=== PATIENT | female | born 1955 | race Caucasian/White ===

== ENCOUNTER 2024-02-24 07:00 | Inpatient (IN) | payer MEDICARE, BC ==
[2024-02-16 15:11] LABS: BILIRUBIN,URINE NEGATIVE (Neg); CLARITY,URINE CLEAR (Clear); COLOR,URINE YELLOW (Yellow); GLUCOSE, URINE NEGATIVE (Neg); KETONES,URINE NEGATIVE (Neg); LEUKOCYTE ESTERASE ,URINE NEGATIVE (Neg); NITRITES, URINE NEGATIVE (Neg); OCCULT BLOOD,URINE NEGATIVE (Neg); PROTEIN,URINE NEGATIVE (Neg); UROBILINOGEN,URINE 0.2 E.U/dL (0.2-1.0)
[2024-02-16 15:19] LABS: UA COLLECTION TYPE CLN CATCH MIDSTREAM
[2024-02-16 15:21] LABS: EOSINOPHILS # (AUTO) 0.1 X10'3 (0-0.9); EOSINOPHILS % (AUTO) 2.4 % (0-6); LYMPHOCYTES # (AUTO) 0.8 X10'3 (1.1-4.8); LYMPHOCYTES % (AUTO) 19.3 % (21-51); MEAN CORPUSCULAR HEMOGLOBIN 34.1 PG (27.0-31.0); MEAN CORPUSCULAR HGB CONC 33.7 g/dL (33.0-36.5); MEAN CORPUSCULAR VOLUME 101.2 FL (78-98); MEAN PLATELET VOLUME 7.1 FL (7.4-10.4); MONOCYTES # (AUTO) 0.3 X10'3 (0-0.9); MONOCYTES % (AUTO) 8.1 % (2-12); NEUTROPHILS # (AUTO) 2.8 X10'3 (1.8-7.7); NEUTROPHILS % (AUTO) 69.2 % (42-75); PRE OP HEMOGLOBIN 11.4 g/dL (12.0-16.0); PRE OP PLATELET COUNT 175 X10'3 (140-440); PRE OP WHITE BLOOD COUNT 4.1 10'3 (4.8-10.8); RED BLOOD COUNT 3.36 X10'6 (4.20-5.60); RED CELL DISTRIBUTION WIDTH 13.6 % (11.5-14.5)
[2024-02-16 15:28] LABS: PRE OP INR 1.1 INR; PRE OP PROTIME 11.2 SECONDS (9.0-12.0)
[2024-02-16 15:39] LABS: ALBUMIN 3.9 G/DL (3.4-5.0); ALBUMIN/GLOBULIN RATIO 1.1 (1.1-1.5); ALKALINE PHOSPHATASE 111 IU/L (46-116); BLOOD UREA NITROGEN 7 MG/DL (7-18); BUN/CREATININE RATIO 11.3 (10.0-20.0); CHLORIDE 95 MMOL/L (99-107); CREATININE 0.62 MG/DL (0.40-0.90); PRE OP ALT 45 U/L (30-65); PRE OP ANION GAP 9 (8-16); PRE OP AST 51 U/L (10-37); PRE OP BILIRUB, TOTAL 0.8 MG/DL (0.0-1.0); PRE OP GLUCOSE 87 MG/DL (70-104); TOTAL CARBON DIOXIDE 23.9 MMOL/L (24-32); TOTAL PROTEIN 7.4 G/DL (6.4-8.2); eGFR > 90 ML/MIN
[2024-02-16 15:54] LABS: PRE OP SODIUM 128 MMOL/L (135-145)
[2024-02-24] VITALS (33 sets, daily range): BP systolic 122–194; BP diastolic 67–87; PULSE 74–90; RESP 7–20; TEMP 97–97.4; O2SAT 96–100
[~2024-02-24] VITALS: Ht 167.6 cm; Wt 70.0 kg
[2024-02-24] MEDS: DOCUMENT DATE & TIME OF BETA-BLOCKER PO ONE (05:30)
[~2024-02-24 07:00] MED LIST: APIX5TAB3 PO; ATOR-2 PO; CALC-159 PO; CYAN100097 PO; LISI20TA28 PO; METO-395 PO; ondansetron/PF 4mg/2ml inj IV PRN
[2024-02-24] MEDS: cefazolin 2gm/D5W 100mL 100 ML IV ONE (07:30)
[2024-02-24] MEDS: famotidine 20mg tablet PO ONE (07:34)
[2024-02-24] MEDS: vancomycin/NS 1 GM in NS 250 ML IV ONE (07:35)
[2024-02-24] MEDS: ringers solution, lacted 1,000 ML IV SCH ×2 (07:35→08:20)
[2024-02-24] MEDS: aprepitant 40mg capsule PO ONE (07:36)
[2024-02-24] MEDS ORDERED: LIDOcaine 1% (10mg/ml) 2ml vial ONE (08:09)
[2024-02-24] MEDS ORDERED: iohexol 350 MG/ML 50ML vial IV ONE (08:17)
[2024-02-24] MEDS ORDERED: morphine 4 MG/ML inj SYRINge IV PRN ×2 (08:20)
[2024-02-24] MEDS: acetaminophen 1,000mg/100ml IV 100 ML IV ONE (08:20)
[2024-02-24] MEDS ORDERED: proCHLORperazine 10 MG/2 ml inj IV PRN ×2 (08:20→09:45)
[2024-02-24] MEDS ORDERED: ondansetron/PF 4mg/2ml inj IV PRN ×2 (08:20→09:45)
[2024-02-24] MEDS ORDERED: morphine 2 MG/ML inj. syringe IV PRN ×2 (08:20)
[2024-02-24] MEDS ORDERED: sevoflurane 250ml liquid IH ONE (08:46)
[2024-02-24] MEDS ORDERED: fentaNYL/PF 50MCG/1 ML 2ML syringe ONE (08:57)
[2024-02-24] MEDS ORDERED: ondansetron/PF 4mg/2ml inj ONE (09:10)
[2024-02-24] MEDS ORDERED: midazolam 1 mg/ML 2ml injection ONE (09:10)
[2024-02-24] MEDS ORDERED: propofol inj 20 ML IV ONE (09:11)
[2024-02-24] MEDS ORDERED: dexamethasone sod phosphate 4mg/ml inj. ONE (09:11)
[2024-02-24] MEDS ORDERED: heparin 1,000unit/ml 10ml vial 10 ML ONE (09:11)
[2024-02-24] MEDS ORDERED: LIDOcaine 1%/PF 5ML 10 MG/ML VIAL ONE (09:11)
[2024-02-24] MEDS ORDERED: magnesium sulf-water 2g/50mL 50 ML IV PRN (09:45)
[2024-02-24] MEDS ORDERED: potassium Cl 20 mEq SR tablet PO PRN (09:45)
[2024-02-24] MEDS ORDERED: HYDROcodone/acetaminophen 5mg/325mg tablet PO PRN (09:45)
[2024-02-24] MEDS ORDERED: labetalol 20mg/4ml (5mg/ml) syringe IV PRN (09:45)
[2024-02-24] MEDS ORDERED: potassium Cl 40MEQ/270ML bag 250 ML IV PRN (09:45)
[2024-02-24] MEDS ORDERED: diphenhydrAMINE 25mg capsule PO PRN (09:45)
[2024-02-24] MEDS ORDERED: potassium Cl 20mEq/100mL bag 100 ML IV PRN (09:45)
[2024-02-24] MEDS ORDERED: potassium CL 10mEq/100ml bag 100 ML IV PRN (09:45)
[2024-02-24] MEDS ORDERED: hydrALAZINE 20mg/ml inj. IV PRN (09:45)
[2024-02-24] MEDS ORDERED: ALPRAZolam 0.25mg tablet PO PRN (09:45)
[2024-02-24] MEDS ORDERED: magnesium sulf-water 4G/100mL 100 ML IV PRN (09:45)
[2024-02-24] MEDS ORDERED: potassium Cl 40MEQ/1/2NS 520ml 520 ML IV PRN (09:45)
[2024-02-24] MEDS: labetalol 20mg/4ml (5mg/ml) syringe IV PRN (09:55)
[2024-02-24] MEDS: hydrALAZINE 20mg/ml inj. IV PRN (10:57)
[2024-02-24] MEDS: normal saline 1000ml 1,000 ML IV SCH (11:41)
[2024-02-24] MEDS: lisinopril 20mg tablet PO SCH (12:11)
[2024-02-24] MEDS: HALLS - SOOTHE MENTHOL 1.8 MG cough drop LOZENGE MM PRN (13:16)
[2024-02-24] MEDS: acetaminophen 325mg tablet PO PRN (13:55)
[2024-02-24] MEDS: ceFAZolin 1GM/D5W- ADD-VANTAGE 50 ML IV SCH (15:36)
[2024-02-24] MEDS: sod chloride 0.9% 10ml flush syringe IV SCH (15:39)
[2024-02-24] MEDS: apixaban 5mg tablet PO SCH (19:51)
[2024-02-24] MEDS: vancomycin/NS 1 GM ADD-VANTAGE 250 ML IV SCH (19:54)
[2024-02-24] MEDS: VITAMIN D3 PO SCH (20:00)
[2024-02-24] MEDS: CALCIUM CARBONATE PO SCH (20:00)
[2024-02-25 02:00] VITALS: BP 138/58; PULSE 86; RESP 20; TEMP 97.4; O2SAT 97
[2024-02-25 06:00] VITALS: BP 159/82; PULSE 95; RESP 18; TEMP 97.6; O2SAT 98
[2024-02-25 07:08] LABS: BASOPHILS % (AUTO) 0.2 % (0-1); EOSINOPHILS % (AUTO) 0 % (0-6); HEMATOCRIT 34.8 % (35.0-45.0); HEMOGLOBIN 11.6 g/dl (12.0-16.0); LYMPHOCYTES # (AUTO) 0.4 X10'3 (1.1-4.8); LYMPHOCYTES % (AUTO) 3.5 % (21-51); MEAN CORPUSCULAR HEMOGLOBIN 34.8 PG (27.0-31.0); MEAN CORPUSCULAR HGB CONC 33.2 g/dL (33.0-36.5); MEAN CORPUSCULAR VOLUME 104.6 FL (78-98); MEAN PLATELET VOLUME 7.6 FL (7.4-10.4); MONOCYTES # (AUTO) 0.3 X10'3 (0-0.9); MONOCYTES % (AUTO) 3.2 % (2-12); NEUTROPHILS # (AUTO) 10.2 X10'3 (1.8-7.7); NEUTROPHILS % (AUTO) 93.1 % (42-75); PLATELET COUNT 199 X10'3 (140-440); RED BLOOD COUNT 3.33 X10'6 (4.20-5.60); RED CELL DISTRIBUTION WIDTH 13.6 % (11.5-14.5)
[2024-02-25 07:21] LABS: PROTHROMBIN TIME 10.9 SECONDS (9.0-12.0)
[2024-02-25 07:39] LABS: ALANINE AMINOTRANSFERASE 24 U/L (12-78); ALBUMIN 3.7 G/DL (3.4-5.0); ALKALINE PHOSPHATASE 84 IU/L (46-116); ANION GAP 14 (8-16); ASPARTATE AMINO TRANSFERASE 20 U/L (10-37); BILIRUBIN,TOTAL 0.8 MG/DL (0.1-1.0); BLOOD UREA NITROGEN 11 MG/DL (7-18); BUN/CREATININE RATIO 10.4 (10.0-20.0); CHLORIDE 99 MMOL/L (99-107); CREATININE 1.06 MG/DL (0.40-0.90); GLUCOSE 156 MG/DL (70-104); MAGNESIUM 1.7 MG/DL (1.5-2.4); PRO BRAIN NATRIURETIC PEPTIDE 876 PG/ML (0-125); SODIUM 133 MMOL/L (135-145); TOTAL CARBON DIOXIDE 19.6 MMOL/L (24-32); TOTAL PROTEIN 7.4 G/DL (6.4-8.2); eCRCL 48 ML/MIN; eGFR 52 ML/MIN
[2024-02-25] MEDS: cyanocobalamin 500mcg tablet PO SCH (08:00)
[2024-02-25] MEDS: pantoprazole 40mg Tablet.DR PO PRN (08:11)
[2024-02-25] MEDS: docusate sod 100mg capsule PO PRN (08:11)
[2024-02-25] MEDS: atorvastatin 20mg tablet PO SCH (08:13)
[2024-02-25] MEDS: metoprolol succinate 25mg (24-HOUR) SR. Tablet PO SCH (08:13)
[2024-02-25 08:55] VITALS: RESP 18; O2SAT 98
[2024-02-25 09:32] VITALS: BP 159/82; PULSE 95; RESP 18; TEMP 97.6; O2SAT 98
[2024-02-25 11:00] VITALS: BP 132/69; PULSE 83; RESP 13; TEMP 97.8; O2SAT 99
== END 2024-02-25 14:22 | disposition home or self-care (01) | DRG 274 ==
LOC: PAS IN 07:00 → EDSTATUS 08:30 → PCU 3S 13:31
PROVIDERS: ADMIT Student in an Organized Health Care Education/Training Program; ATTEND Student in an Organized Health Care Education/Training Program
PROC: 03HY32Z Insertion of Monitoring Device into Upper Artery, Percutaneous Approach (ICD-10-PCS; 2024-02-24)
PROC: B24BZZ4 Ultrasonography of Heart with Aorta, Transesophageal (ICD-10-PCS; 2024-02-24)
PROC: 02L73DK Occlusion of Left Atrial Appendage with Intraluminal Device, Percutaneous Approach (ICD-10-PCS; principal; 2024-02-24 08:46)
DX: I48.0 Paroxysmal atrial fibrillation (principal); E78.5 Hyperlipidemia, unspecified; I10 Essential (primary) hypertension; Z86.73 Personal history of transient ischemic attack (TIA), and cerebral infarction without residual deficits; Z79.01 Long term (current) use of anticoagulants; Z88.8 Allergy status to other drugs, medicaments and biological substances
CPT/HCPCS: 33340; 36415; 71045; 71046; 76937; 80053; 81003; 82948; 83735; 83880; 84295; 85025; 85347; 85610; 85730; 86885; 86900; 86901; 86920; 87081; 93005; 93308; 93312; 93325; A4618; A6258; A6449; C1889; C1893; C1894; G0378; J0360; J0690; J1100; J1644; J2250; J2405; J2704; J3010; J3370; J3490; J7030; J7040; J7120; J8501; Q9967

== ENCOUNTER 2024-04-18 12:19 | Day surgery (SDC) | payer MEDICARE, BC ==
[2024-04-18] VITALS (13 sets, daily range): BP systolic 111–182; BP diastolic 71–107; PULSE 76–105; RESP 13–17; TEMP 98.3; O2SAT 95–98
[~2024-04-18] VITALS: Ht 167.6 cm; Wt 71.0 kg
[~2024-04-18 12:19] MED LIST changes: -ondansetron/PF 4mg/2ml inj IV PRN
[2024-04-18] MEDS ORDERED: CHOL20002 PO (12:51)
[2024-04-18 13:10] LABS: BASOPHILS % (AUTO) 0.6 % (0-1); HEMATOCRIT 35.3 % (35.0-45.0); LYMPHOCYTES # (AUTO) 0.7 X10'3 (1.1-4.8); LYMPHOCYTES % (AUTO) 18.3 % (21-51); MEAN CORPUSCULAR HEMOGLOBIN 34.5 PG (27.0-31.0); MEAN CORPUSCULAR VOLUME 101.7 FL (78-98); MEAN PLATELET VOLUME 7.1 FL (7.4-10.4); MONOCYTES # (AUTO) 0.3 X10'3 (0-0.9); MONOCYTES % (AUTO) 8.5 % (2-12); NEUTROPHILS # (AUTO) 2.7 X10'3 (1.8-7.7); NEUTROPHILS % (AUTO) 71.6 % (42-75); PLATELET COUNT 172 X10'3 (140-440); RED BLOOD COUNT 3.47 X10'6 (4.20-5.60); RED CELL DISTRIBUTION WIDTH 12.9 % (11.5-14.5); WHITE BLOOD COUNT 3.7 X10'3 (4.5-11.0)
[2024-04-18 13:18] LABS: ALBUMIN 4.2 G/DL (3.4-5.0); BLOOD UREA NITROGEN 9 MG/DL (7-18); BUN/CREATININE RATIO 10.7 (10.0-20.0); CALCIUM 9.3 MG/DL (8.5-10.1); CREATININE 0.84 MG/DL (0.40-0.90); GLUCOSE 97 MG/DL (70-104); TOTAL CARBON DIOXIDE 23.5 MMOL/L (24-32); eCRCL 61 ML/MIN; eGFR 68 ML/MIN
[2024-04-18 13:22] LABS: APTT 28 SECONDS (22-32); INR 1.1 INR; PROTHROMBIN TIME 11.9 SECONDS (9.0-12.0)
[2024-04-18 14:07] LABS: ANION GAP 13 (8-16); CHLORIDE 96 MMOL/L (99-107); POTASSIUM 4.4 MMOL/L (3.5-5.1); SODIUM 132 MMOL/L (135-145)
[2024-04-18] MEDS: fentaNYL/PF 50MCG/1 ML 2ML syringe IV ONE (15:04)
[2024-04-18] MEDS: MIDAZolam 1mg/ml 10ml vial IV ONE (15:04)
[2024-04-18] MEDS ORDERED: ASPI81TA52 PO (15:29)
[2024-04-18] MEDS ORDERED: CLOP75TA34 PO (15:29)
== END 2024-04-18 16:20 | disposition home or self-care (01) ==
LOC: SSTAY O 12:19
PROVIDERS: ATTEND Internal Medicine Interventional Cardiology
DX: I48.91 Unspecified atrial fibrillation (principal); I11.9 Hypertensive heart disease without heart failure; E78.5 Hyperlipidemia, unspecified; Z86.73 Personal history of transient ischemic attack (TIA), and cerebral infarction without residual deficits; Z79.01 Long term (current) use of anticoagulants; Z98.890 Other specified postprocedural states
CPT/HCPCS: 36415; 80048; 85025; 85610; 85730; 93325; C8925; J2250; J3010; J7030; 93312